=== PATIENT | female | born 1955 | race Caucasian/White ===

== ENCOUNTER 2023-12-31 16:30 | Emergency (ER) | payer MEDICARE, SELFPAY ==
[2023-12-31 16:45] VITALS: BP 166/83; PULSE 106; RESP 16; TEMP 36.6; O2SAT 99; BMI 23.8
--- NOTE | 2023-12-31 16:53 | ECG_ITS ---
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 Measurements Intervals [place] Rate: 105 P: 81 [place]: 130 QRS: 76 QRSD: 90 T: 63 QT: 315 QTc: 416 Interpretive Statements SINUS TACHYCARDIA WITH OCCASIONAL VENTRICULAR PREMATURE COMPLEXES LOW QRS VOLTAGE IN PRECORDIAL LEADS [QRS DEFLECTION < 1.0 mV IN CHEST LEADS] ABNORMAL RHYTHM ECG No previous ECG available for comparison Electronically Signed On 12-31-2023 19:21:57 CDT by Candy Harrington M.D. [email or web address] Data Center [email or web address] [facility] [id number]
[2023-12-31 17:27] VITALS: BP 193/100; PULSE 98; RESP 25; O2SAT 96
--- NOTE | 2023-12-31 17:27 | XRR_ITS ---
PROCEDURE INFORMATION: Exam: XR Chest Exam date and time: 12/31/2023 5:50 PM Age: 68 years old Clinical indication: Other: HTN; Patient HX: Hypertension; Weakness TECHNIQUE: Imaging protocol: Radiologic exam of the chest. Views: 1 view. COMPARISON: No relevant prior studies available. FINDINGS: Lungs: The lungs are clear. Possible emphysema. Pleural spaces: Unremarkable. No pleural effusion. No pneumothorax. Heart/Mediastinum: Unremarkable. No cardiomegaly. Bones/joints: Thoracolumbar scoliosis. No fracture visualized. XR/XR chest 1V portable [id number] IMPRESSION: No acute findings.
--- NOTE | 2023-12-31 17:48 | ED_ITS ---
HPI - Arrhythmia/Palpitations 2 General: Chief Complaint: Arrhythmia/Palpitations Stated Complaint: Blood pressure up and down, adrienne elif Time Seen by Provider: 12/31/23 17:44 Source: patient Mode of arrival: ambulatory Limitations: no limitations History of Present Illness: 68-year-old female states she has been h aving hypertension today she states her blood pressure been running in the 180s 190s states she is felt so anxious about it she has had some shakiness along with weakness and some mild lightheadedness. She denies any pain anywhere states she typically does not see physicians not on any meds currently Associated symptoms: Deny nausea or vomiting Related Data Previous Rx's Medication Instructions Recorded metoprolol succinate 25 mg 25 mg PO DAILY #30 tabs 12/31/23 tablet,extended release 24 hr Allergies Allergy/AdvReac Type Severity Reaction Status Date / Time amoxicillin Allergy ALGY-Rash Verified 12/31/23 16:50 Review of Systems 2 Const: Denies: fever(s), chills, body aches or change in appetite ENMT: Denies: throat pain or dental pain Card: Reports: palpitations; Denies: chest pain Resp: Denies: dyspnea GI: Denies: abdominal pain, nausea, vomiting or diarrhea Musc: Denies: neck pain or back pain Skin/Breast: Denies: rash Neuro: Denies: headache(s) Physical Exam 2 Const: COMMON NORMALS: no acute distress, patient oriented x3 and healthy appearing HENMT: COMMON NORMALS: normocephalic and atraumatic HEAD & SCALP: n ormocephalic and atraumatic Neck/C-Spine: COMMON NORMALS: full ROM and supple Chest: COMMONS NORMALS: normal inspection of the chest Resp: COMMON NORMALS: normal respiratory effort, No retractions, No use of accessory muscles and clear to auscultation bilaterally AUSCULTATION: clear to auscultation bilaterally Cardio: COMMON NORMALS: regular rhythm and No murmurs present (Cardio) R ATE: tachycardic RHYTHM: regular rhythm GI: COMMON NORMALS: Normal to inspection, nondistended, normoactive bowel sounds present, Soft to palpation, non-tender and no masses PALPATION: Yes Soft to palpation Extremity: COMMON NORMALS: normal to inspection and full ROM Neuro: COMMON NORMALS: patient oriented x3, moves all extremities and no focal motor deficits Psych: COMMON NORMALS: mental status grossly normal, Normal thought process present and cooperative THOUGHT PROCESS: Normal thought process present Skin: COMMON NORMALS: no rashes or lesions noted and no wounds GENERAL SKIN EXAM: no rashes or lesions noted Course 2 Vital Signs: Vital signs: Vital Signs Temperature 97.9 F 12/31/23 16:45 Pulse Rate 74 12/31/23 18:56 Respiratory Rate 20 H 12/31/23 18:00 Blood Pressure 138/89 12/31/23 18:56 Pulse Oximetry 96 12/31/23 18:56 Oxygen Delivery Me thod Room Air 12/31/23 16:45 MDM - Arrhythmia/Palpitations Medical Decision Making Patient presents here with hypertension her blood pressure improved she feels much improved here as well. Blood work here is normal started metoprolol she is to get a PCP return if worsening. Medical Records I reviewed the patient's medical records. Lab Data I reviewed the patient's lab results. 12/31/23 18:00 12/31/23 18:00 Laboratory Results WBC 9.18 10^3/uL (3.29-11.43) 12/31/23 18:00 RBC 4.81 10^6/uL (3.85-5.65) 12/31/23 18:00 Hgb 14.40 g/dL (11.27-16.99) 12/31/23 18:00 Hct 43.0 % (36-47) 12/31/23 18:00 MCV 89.4 fl (85-98) 12/31/23 18:00 MCH 29.9 pg (27-33) 12/31/23 18:00 MCHC 33.5 g/dL (30-55) 12/31/23 18:00 RDW 12.9 % (12.1-15.1) 12/31/23 18:00 Plt Count 335 10^3/cmm (157-399) 12/31/23 18:00 MPV 9.4 fL (7.4-10.4) 12/31/23 18:00 Neut % (Auto) 81.4 % 12/31/23 18:00 Lymph % (Auto) 13.3 % 12/31/23 18:00 [place] % (Auto) 4.6 % 12/31/23 18:00 Eos % (Auto) 0.0 % 12/31/23 18:00 Baso % (Auto) 0.3 % 12/31/23 18:00 Neut # (Auto) 7.47 10^3/uL (1.8-7.7) 12/31/23 18:00 Lymph # (Auto) 1.2 10^3/uL (0.8-4.8) 12/31/23 18:00 [place] # (Auto) 0.4 10^3/uL (0.2-0.9) 12/31/23 18:00 Eos # (Auto) 0.0 10^3/uL (0.0-0.8) 12/31/23 18:00 Baso # (Auto) 0.0 10^3/uL (0.0-0.1) 12/31/23 18:00 Nucleated RBC % (auto) 0 % 12/31/23 18:00 Nucleated RBCs # 0.0 /100WBC 12/31/23 18:00 Sodium 140 mmol/L (136-145) 12/31/23 18:00 Potassium 3.7 mmol/L (3.5-5.1) 12/31/23 18:00 Chloride 101 mmol/L (98-107) 12/31/23 18:00 Carbon Dioxide 23 mmol/L (22-29) 12/31/23 18:00 Anion Gap 19.7 (5-19) H 12/31/23 18:00 BUN 12 mg/dL (8-23) 12/31/23 18:00 Creatinine 0.7 mg/dL (0.5-0.9) 12/31/23 18:00 GFR Calculation 83.2 mL/min (90-130) L 12/31/23 18:00 Glucose 110 mg/dL (65-115) 12/31/23 18:00 Calculated Osmolality 290 mOsm/kg (285-295) 12/31/23 18:00 Calcium 9.7 mg/dL (8.5-10.5) 12/31/23 18:00 Total Bilirubin 0.8 mg/dL (0.15-1.2) 12/31/23 18:00 AST 20 U/L (0-32) 12/31/23 18:00 ALT 12 U/L (0-33) 12/31/23 18:00 Alkaline Phosphatase 63 U/L (35-105) 12/31/23 18:00 Total Protein 8.1 g/dL (6.6-8.7) 12/31/23 18:00 Albumin 4.8 g/dL (3.5-5.2) 12/31/23 18:00 Globulin 3.3 g/dL (1.3-4.6) 12/31/23 18:00 All radiology interpretation(s) finalized by discharge EKG Data EKG 1: I personally reviewed and interpreted this EKG as follows: EKG interpretation date: 12/31/23 EKG interpretation time: 16:53 Interpretation: sinus tach hr [address] elevation qrs 90 qtc 376 Discharge Plan Discharge Patient Disposition: Home Clinical Impression: Hypertension Condition: Stable Prescriptions: New metoprolol succinate 25 mg tablet extended release 24 hr 25 mg PO DAILY Qty: 30 0RF Discharge Orders: Discharge ED (Routine); Ordered 12/31/23 Ordered By: Amber Valle Discharge Diet: Advance as tolerated Discharge Activity: Resume usual activity Patient Instructions: Hypertension (ED) Coding Level of Care Code ED 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
[2023-12-31 18:00] VITALS: BP 174/91; PULSE 100; RESP 20; O2SAT 96
[2023-12-31] MEDS: labetalol 5 mg/mL SDV 20mL 10 MG IVP (18:04)
[2023-12-31] MEDS: sodium chloride 0.9% 1,000 ML 999 ML IV (18:04)
[2023-12-31 18:10] LABS: Basophils % 0.3 %; Lymphocytes # 1.2 10^3/uL (0.8-4.8); Lymphocytes % 13.3 %; Mean Corpuscular HGB Conc 33.5 g/dL (30-55); Mean Corpuscular Hemoglobin 29.9 pg (27-33); Mean Corpuscular Volume 89.4 fl (85-98); Mean Platelet Volume 9.4 fL (7.4-10.4); Monocytes # 0.4 10^3/uL (0.2-0.9); Monocytes % 4.6 %; Neutrophils # 7.47 10^3/uL (1.8-7.7); Neutrophils % 81.4 %; Nucleated Red Blood Cells % 0 %; Platelet Count 335 10^3/cmm (157-399); Red Blood Count 4.81 10^6/uL (3.85-5.65); Red Cell Distribution Width 12.9 % (12.1-15.1); White Blood Count 9.18 10^3/uL (3.29-11.43)
[2023-12-31 18:30] VITALS: BP 134/100; PULSE 78; O2SAT 97
[2023-12-31 18:30] LABS: Alanine Aminotransferase 12 U/L (0-33); Albumin Level 4.8 g/dL (3.5-5.2); Alkaline Phosphatase 63 U/L (35-105); Anion Gap 19.7 (5-19); Aspartate Amino Transferase 20 U/L (0-32); Blood Urea Nitrogen 12 mg/dL (8-23); Calcium 9.7 mg/dL (8.5-10.5); Carbon Dioxide 23 mmol/L (22-29); Chloride 101 mmol/L (98-107); Creatinine Clr Calc Pharmacy 56.9997; Globulin 3.3 g/dL (1.3-4.6); Glomerular Filtration Rate 83.2 mL/min (90-130); Glucose 110 mg/dL (65-115); Osmolality Calculated 290 mOsm/kg (285-295); Potassium 3.7 mmol/L (3.5-5.1); Sodium 140 mmol/L (136-145); Total Bilirubin 0.8 mg/dL (0.15-1.2); Total Protein 8.1 g/dL (6.6-8.7)
[2023-12-31 18:56] VITALS: BP 138/89; PULSE 74; O2SAT 96
--- NOTE | 2024-01-01 08:52 | DCPLANNER ---
messaged wp fam med for er f/u
== END 2023-12-31 18:58 | disposition home or self-care (01) ==
PROVIDERS: Emergency Medicine; Emergency Provider Emergency Medicine
DX: I10 Essential (primary) hypertension (principal); R00.0 Tachycardia, unspecified
CPT/HCPCS: 36415; 71045; 80053; 85025; 93005; 96374; 99285; J3490; J7030

== ENCOUNTER 2024-04-13 13:19 | Emergency (ER) | payer MEDICARE, SELFPAY ==
--- NOTE | 2024-04-13 13:20 | XRR_ITS ---
PROCEDURE INFORMATION: Exam: XR Chest Exam date and time: 04/13/2024 1:33 PM Age: 68 years old Clinical indication: Other: Weakness TECHNIQUE: Imaging protocol: Radiologic exam of the chest. Views: 1 view. COMPARISON: CR XR chest 1V portable [id number] 12/31/2023 5:50 PM FINDINGS: Lungs: Unremarkable. No consolidation. Pleural spaces: Unremarkable. No pleural effusion. No pneumothorax. Heart/Mediastinum: Unremarkable. No cardiomegaly. Bones/joints: [id number] dextroscoliosis of the thoracic spine. XR/XR chest 1V portable [id number] IMPRESSION: No acute findings.
[2024-04-13 13:27] VITALS: BP 185/82; PULSE 96; RESP 16; TEMP 36.8; O2SAT 96; BMI 21.9
[2024-04-13 13:59] LABS: Basophils # 0.1 10^3/uL (0.0-0.1); Basophils % 0.8 %; Eosinophils % 0.5 %; Hematocrit 41.5 % (36-47); Lymphocytes # 1.4 10^3/uL (0.8-4.8); Lymphocytes % 21.4 %; Mean Corpuscular HGB Conc 33.3 g/dL (30-55); Mean Corpuscular Hemoglobin 29.4 pg (27-33); Mean Corpuscular Volume 88.5 fl (85-98); Mean Platelet Volume 9.4 fL (7.4-10.4); Monocytes # 0.3 10^3/uL (0.2-0.9); Monocytes % 5.3 %; Neutrophils # 4.64 10^3/uL (1.8-7.7); Neutrophils % 71.7 %; Nucleated Red Blood Cells % 0 %; Platelet Count 335 10^3/cmm (157-399); Red Blood Count 4.69 10^6/uL (3.85-5.65); Red Cell Distribution Width 13.2 % (12.1-15.1); White Blood Count 6.46 10^3/uL (3.29-11.43)
[2024-04-13 14:07] LABS: Bilirubin Urine Negative (Negative); Blood Urine Trace (Negative); Glucose Urine UA Negative (Normal); Ketones Urine Negative (Negative); Leukocyte Esterase Urine Trace (Negative); Nitrate Urine Negative (Negative); Protein Urine Negative (Negative); Specific Gravity, Urine 1.002 (1.005-1.030); Urine Appearance Clear (CLEAR); Urine Color Yellow (Yellow); Urobilinogen Urine 0.2 mg/dL (Negative); pH Urine 6.5 (5-7)
--- NOTE | 2024-04-13 14:07 | ED_ITS ---
HPI - General Adult 2 General: Chief complaint: General Medical Stated complaint: generalized weakness Time Seen by Provider: 04/13/24 13:23 History of Present Illness: 60-year-old female presents emergency ro om complaining of not being able to sleep. She seen her primary care provider and has been on different medication she is they have not been working. She admits to being extremely anxious. She states that she feels what she describes as a swimmy headed. She denies any chest pain or abdominal pain no fever sweats chills no dysuria urgency or frequency diarrhea or constipation Associated symptoms: Deny chest pain, dyspnea or rash Related Data Previous Rx's Medication Instructions Recorded metoprolol succinate 25 mg 25 mg PO DAILY #30 tabs 01/09/24 tablet,extended release 24 hr hydroxyzine HCl 25 mg tablet 25 mg PO .QHS PRN sleep #5 tabs 04/13/24 Allergies Allergy/AdvReac Type Severity Reaction Status Date / Time amoxicillin Allergy ALGY-Rash Verified 04/13/24 13:31 Review of Systems 2 Const: Denies: fever(s) or chills Card: Denies: chest pain Resp: Denies: dyspnea GI: Denies: abdominal pain : Denies: dysuria, urinary frequency or urinary urgency Musc: Denies: neck pain or back pain Skin/Breast: Denies: rash PFSH ED 2 PFSH: Medical History Hypertension Insomnia Anxiety Encounter to establish care Social History Smoking and tobacco/nicotine status: unknown if used tobacco/nicotine Physical Exam 2 Const: GENERAL APPEARANCE: cooperative ORIENTATION/CONSCIOUSNESS: Yes awake, Yes oriented to person, Yes oriented to place and Yes oriented to time HENMT: COMMON NORMALS: normocephalic, atraumatic and hearing grossly normal bilaterally HEAD & SCALP: normocephalic and atraumatic Resp: COMMON NORMALS: normal respiratory effort, No retractions, No use of accessory muscles and clear to auscultation bilaterally AUSCULTATION: clear to auscultation bilaterally Cardio: COMMON NORMALS: regular rate, regular rhythm and No murmurs present (Cardio) RATE: regular rate RHYTHM: regular rhythm GI: COMMON NORMALS: Soft to palpation and No hepatosplenomegaly present A USCULTATION: Yes normoactive bowel sounds PALPATION: Yes Soft to palpation, No Tenderness to palpation present (GI), No Guarding due to palpation present (GI) and Yes No hepatosplenomegaly present Extremity: COMMON NORMALS: normal to inspection, capillary refill normal, no clubbing, cyanosis or edema, no calf tenderness and no pedal edema Neuro: SENSORIUM/ORIENTATION: Yes oriented to person, Yes oriented to place and Yes oriented to time Skin: COMMON NORMALS: no rashes or lesions noted GENERAL SKIN EXAM: no rashes or lesions noted Course 2 Vital Signs: Vital signs: Vital Signs Temperature 98.2 F 04/13/24 13:27 Pulse Rate 88 04/13/24 14:45 Respiratory Rate 16 04/13/24 13:27 Blood Pressure 147/82 04/13/24 14:45 Pulse Oximetry 96 04/13/24 14:45 Oxygen Delivery Me thod Room Air 04/13/24 13:27 MDM - General Adult Medical Decision Making Patient essentially here for insomnia. Will discharge patient home increase her hydroxyzine to 25 mg daily blood pressure is mildly elevated. In encouraged her to follow-up with her primary care doctor regarding your blood pressure at the efficacy of the higher dose of hydroxyzine Medical Records I reviewed the patient's medical records. Lab Data I reviewed the patient's lab results. 04/13/24 13:44 04/13/24 13:44 Radiology Impressions Chest X-Ray 04/13/24 13:20 IMPRESSION: No acute findings. Laboratory Results WBC 6.46 10^3/uL (3.29-11.43) 04/13/24 13:44 RBC 4.69 10^6/uL (3.85-5.65) 04/13/24 13:44 Hgb 13.80 g/dL (11.27-16.99) 04/13/24 13:44 Hct 41.5 % (36-47) 04/13/24 13:44 MCV 88.5 fl (85-98) 04/13/24 13:44 MCH 29.4 pg (27-33) 04/13/24 13:44 MCHC 33.3 g/dL (30-55) 04/13/24 13:44 RDW 13.2 % (12.1-15.1) 04/13/24 13:44 Plt Count 335 10^3/cmm (157-399) 04/13/24 13:44 MPV 9.4 fL (7.4-10.4) 04/13/24 13:44 Neut % (Auto) 71.7 % 04/13/24 13:44 Lymph % (Auto) 21.4 % 04/13/24 13:44 [place] % (Auto) 5.3 % 04/13/24 13:44 Eos % (Auto) 0.5 % 04/13/24 13:44 Baso % (Auto) 0.8 % 04/13/24 13:44 Neut # (Auto) 4.64 10^3/uL (1.8-7.7) 04/13/24 13:44 Lymph # (Auto) 1.4 10^3/uL (0.8-4.8) 04/13/24 13:44 [place] # (Auto) 0.3 10^3/uL (0.2-0.9) 04/13/24 13:44 Eos # (Auto) 0.0 10^3/uL (0.0-0.8) 04/13/24 13:44 Baso # (Auto) 0.1 10^3/uL (0.0-0.1) 04/13/24 13:44 Nucleated RBC % (auto) 0 % 04/13/24 13:44 Nucleated RBCs # 0.0 /100WBC 04/13/24 13:44 Sodium 135 mmol/L (136-145) L 04/13/24 13:44 Potassium 3.6 mmol/L (3.5-5.1) 04/13/24 13:44 Chloride 97 mmol/L (98-107) L 04/13/24 13:44 Carbon Dioxide 24 mmol/L (22-29) 04/13/24 13:44 Anion Gap 17.6 (5-19) 04/13/24 13:44 BUN 10 mg/dL (8-23) 04/13/24 13:44 Creatinine 0.7 mg/dL (0.5-0.9) 04/13/24 13:44 GFR Calculation 83.2 mL/min (90-130) L 04/13/24 13:44 Glucose 109 mg/dL (65-115) 04/13/24 13:44 Calculated Osmolality 280 mOsm/kg (285-295) L 04/13/24 13:44 Lactic Acid 1.3 mmol/L (0.5-2.2) 04/13/24 13:44 Calcium 9.9 mg/dL (8.5-10.5) 04/13/24 13:44 Total Bilirubin 0.7 mg/dL (0.15-1.2) 04/13/24 13:44 AST 22 U/L (0-32) 04/13/24 13:44 ALT 14 U/L (0-33) 04/13/24 13:44 Alkaline Phosphatase 71 U/L (35-105) 04/13/24 13:44 Troponin T Baseline < 6 ng/L (0-10) 04/13/24 13:44 Total Protein 7.4 g/dL (6.6-8.7) 04/13/24 13:44 Albumin 4.7 g/dL (3.5-5.2) 04/13/24 13:44 Globulin 2.7 g/dL (1.3-4.6) 04/13/24 13:44 Urine Color Yellow (Yellow) 04/13/24 14:01 Urine Appearance Clear (CLEAR) 04/13/24 14:01 Urine pH 6.5 (5-7) 04/13/24 14:01 Ur Specific [place] 1.002 (1.005-1.030) L 04/13/24 14:01 Urine Protein Negative (Negative) 04/13/24 14:01 Urine Glucose (UA) Negative (Normal) 04/13/24 14:01 Urine Ketones Negative (Negative) 04/13/24 14:01 Urine Blood Trace (Negative) A 04/13/24 14:01 Urine Nitrate Negative (Negative) 04/13/24 14:01 Urine Bilirubin Negative (Negative) 04/13/24 14:01 Urine Urobilinogen 0.2 mg/dL (Negative) 04/13/24 14:01 Ur Leukocyte Esterase Trace (Negative) A 04/13/24 14:01 Urine RBC 0-2 /hpf (0-2) 04/13/24 14:01 Urine WBC 0-5 /hpf (0-5) 04/13/24 14:01 Ur Squamous Epith Cells 0-5 /hpf (0-5) 04/13/24 14:01 Amorphous Sediment Not Reportable 04/13/24 14:01 Urine Bacteria None seen /hpf (NONE) 04/13/24 14:01 Hyaline Casts 0-4 /lpf H 04/13/24 14:01 Coronavirus (PCR) Negative (Negative) 04/13/24 13:44 Influenza A (PCR) Negative (Negative) 04/13/24 13:44 Influenza Type B (PCR) Negative (Negative) 04/13/24 13:44 RSV (PCR) Negative (Negative) 04/13/24 13:44 All radiology interpretation(s) finalized by discharge Discharge Plan Discharge Patient Disposition: Home Clinical Impression: Sleep difficulties, HTN (hypertension), Anxiety Condition: Stable Prescriptions: New hydroxyzine HCl 25 mg tablet 25 mg PO .QHS PRN (Reason: sleep) Qty: 5 0RF Discontinued hydroxyzine HCl 10 mg tablet 10 mg PO TID PRN (Reason: itching) Qty: 60 0RF No Action metoprolol succinate 25 mg tablet extended release 24 hr 25 mg PO DAILY Qty: 30 2RF Discharge Orders: Discharge ED (Routine); Ordered 04/13/24 Ordered By: Jose Anderson Referrals: Vale Leon NP [Primary Care Provider] - Discharge Diet: Usual diet Discharge Activity: Increase activity as tolerated Patient Instructions: Insomnia (ED), Opioid Safety, Pain Management Activity Restrictions/Additional Instructions: Thank you for choosing [facility] for your healthcare needs today. It is very important that you follow up as instructed or that you return to the Emergency Department should you have concerns or if your condition changes or worsens in any way. You are seen in the emergency room with complaints difficulty sleeping. We increased your dose of hydroxyzine to 25 mg nightly. Follow-up with your primary care provider Coding Level of Care Code ED Commercial Retoucher for Darin Rubio
[2024-04-13 14:12] LABS: Bacteria Urine None Seen /hpf; Hyaline Casts Urine 0-4 /lpf; RBC Urine 0-2 /hpf (0-2); Squamous Epithelial Cell Urine 0-5 /hpf (0-5); WBC Urine 0-5 /hpf (0-5)
[2024-04-13 14:20] LABS: Lactic Sepsis W/Reflex 1.3 mmol/L (0.5-2.2)
[2024-04-13 14:21] LABS: Alanine Aminotransferase 14 U/L (0-33); Albumin Level 4.7 g/dL (3.5-5.2); Alkaline Phosphatase 71 U/L (35-105); Anion Gap 17.6 (5-19); Aspartate Amino Transferase 22 U/L (0-32); Blood Urea Nitrogen 10 mg/dL (8-23); Calcium 9.9 mg/dL (8.5-10.5); Carbon Dioxide 24 mmol/L (22-29); Chloride 97 mmol/L (98-107); Creatinine Clr Calc Pharmacy 55.0719; Globulin 2.7 g/dL (1.3-4.6); Glomerular Filtration Rate 83.2 mL/min (90-130); Glucose 109 mg/dL (65-115); Osmolality Calculated 280 mOsm/kg (285-295); Potassium 3.6 mmol/L (3.5-5.1); Sodium 135 mmol/L (136-145); Total Bilirubin 0.7 mg/dL (0.15-1.2); Total Protein 7.4 g/dL (6.6-8.7)
[2024-04-13 14:22] LABS: Troponin(5th) Baseline < 6 ng/L (0-10)
[2024-04-13 14:34] LABS: Covid PCR NEGATIVE (Negative); Influenza A NEGATIVE (Negative); Influenza B NEGATIVE (Negative); Respiratory Syncytial Virus Ce NEGATIVE (Negative)
[2024-04-13 14:45] VITALS: BP 147/82; PULSE 88; O2SAT 96
--- NOTE | 2024-04-13 15:20 | ECG_ITS ---
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 Measurements Intervals [place] Rate: 93 P: 1 [place]: 143 QRS: 69 QRSD: 81 T: 18 QT: 333 QTc: 414 Interpretive Statements SINUS RHYTHM POSSIBLE LEFT ATRIAL ENLARGEMENT [-0.1mV P-WAVE IN V1/V2] LOW QRS VOLTAGE IN PRECORDIAL LEADS [QRS DEFLECTION < 1.0 mV IN CHEST LEADS] PATTERN CONSISTENT WITH PULMONARY DISEASE MINIMAL ST DEPRESSION [0.025+ mV ST DEPRESSION] Compared to ECG 12/31/2023 16:53:10 ST (T wave) deviation now present Sinus tachycardia no longer present Ventricular premature complex(es) no longer present Electronically Signed On 04-14-2024 13:35:50 DRAFTER (CAD) ELECTRONIC by Candy Harrington M.D. [id number]
== END 2024-04-13 14:46 | disposition home or self-care (01) ==
PROVIDERS: Emergency Medicine; Emergency Provider Family Medicine
DX: G47.9 Sleep disorder, unspecified (principal); I10 Essential (primary) hypertension; F41.9 Anxiety disorder, unspecified; Z11.52 Encounter for screening for COVID-19
CPT/HCPCS: 36415; 71045; 80053; 81001; 83605; 84484; 85025; 87040; 87637; 93005; 99285